=== PATIENT | female | born 1970 | race Caucasian/White ===

== ENCOUNTER → 2017-01-29 | Day surgery (SDC) | payer OTHER ==
[~2017-01-29] VITALS: Ht 160 cm; Wt 88.0 kg
[~2017-01-29] MED LIST: EFFEXOR XR75 M1 PO; FERROUS SULFAT325 M3 PO; FUROSEMIDE20 M1 PO; POTASSIUM CHLO10 ME3 PO
--- NOTE | 2017-01-29 14:13 | Operative Report ---
Operative/Inv Procedure Report Surgery Date: 01/29/17 Name of Procedure: Same under anesthesia, hysteroscopy and dilatation and curettage and utilization of Myosure device to remove several endometrial polyps Pre-Operative Diagnosis: Abnormal uterine bleeding office hysteroscopy revealed several endometrial polyps Post-Operative Diagnosis: Removal of 3 endometrial polyps adequate sampling of the uterine cavity Estimated Blood Loss: scant Surgeon/Respiratory Care Program Director: OLIVIA BLEVINS,EDGAR Donahue Anesthesia: local monitored anesthesi Monitors: Blood pressure cuff EKG electrodes pulse oximeter IV Fluids: 750 ML crystalloid Implants: None Urine Output: Not measured no urinary catheterization performed Drains: None Specimens: #1 endocervical curettage,#2 endometrial curettage and endometrial polyps Microbiology: None Tourniquet: None Complications: None Condition: Good Operative Indication: Patient with abnormal uterine bleeding whose initial ultrasound was nonfocal but office hysteroscopy revealed endometrial polyps. Patient was planned for myosure removal of endometrial polyps and a same-day surgery setting Operative/Procedure Note Note: Patient was brought to the operating room, and placement dorsal supine position on the operating room table. Appropriate monitoring devices were placed on the patient. Timeout was discussed by the team and agreed upon. No need for perioperative antibiotics. Patient was given adequate IV sedation. After adequate sedation, she was then placed in the dorsal lithotomy position utilizing pneumatic compression boots her lower extremities with the aid of candycane stirrups. Exam under anesthesia showed a normal-size uterus adnexa nonpalpable. Speculum placed vagina cervix visualized. Single-tooth tenaculum placed on the anterior lip of cervix. Endocervical curettage performed, and the specimen was submitted to the lab separately. Cervix was then carefully dilated to #6 Hegar dilator. The off set hysteroscope was then utilized for this procedure. The Myosure device was set up, the fluid insufflation unit was set to the patient's mean arterial pressure. After the scope was primed the scope was introduced through the endocervical canal under direct visualization until the uterine cavity was reached. Uterine cavity showed no evidence of submucosal fibroids, no significant fundal septum. 3 small polyps were noted at the right uterine cornea. A patch of fluffy tissue was noted separately on the front or anterior uterine wall and also on the the posterior uterine wall. The Myosure resecting device was then utilized through the operating channel of the scope. Using direct visualization all 3 endometrial polyps were removed from the patient's right cornu. Using a buttering type technique, utilizing a gentle sweeping motion, we were able to resect the patches of fluffy endometrial tissue that were noted on both the anterior uterine wall and the posterior uterine wall. Cavity was adequately sampled and endometrial polyps were completely removed. There was no active bleeding from the endometrium. At completion of the uterine sampling and resection of the polyps the uterine cavity was noted to be intact. Fluid deficit was listed at 210 ML total. All instruments removed from the vagina under direct visualization, and good hemostasis continued. Separate specimen of endometrial curettage and endometrial polyp submitted to the lab as a second specimen. Good hemostasis continued. Patient was returned to the dorsal supine position and then was awakened from IV sedation. The patient was then taken to recovery room in good condition. Surgical count showed a correct count 2 of sponge Telfa and instruments Findings: Hysteroscopic review the uterine cavity showed 3 polyps near the patient's right cornu. There was no submucosal myoma. There were patches of fluffy endometrial tissue both on the anterior and the posterior uterine wall. The Myosure dissection device was used to fully resect the 3 endometrial polyps and to adequately sample the uterine cavity. 2 separate specimens submitted to the lab #1 endocervical curettage #2 endometrial curettage and polyps. Good hemostasis at completion of the procedure.
== END ==
LOC: STS 07:00
DX: N84.0 Polyp of corpus uteri (principal); N93.8 Other specified abnormal uterine and vaginal bleeding
CPT/HCPCS: 81025; 88305; J2210; J2250